=== PATIENT | female | born 1965 | race Caucasian/White ===

== ENCOUNTER → 2023-07-12 | Outpatient (CLI) | payer OTHER ==
--- NOTE | 2023-07-12 14:03 | P.SLEEP ---
History of Present Illness DATE: 07/12/2023 CONSULTATION/NEW PATIENT EVALUATION HISTORY OF PRESENT ILLNESS/SLEEP-WAKE EVALUATION: 57-year-old lady had been ev aluated in the sleep center for possible obstructive sleep apnea hypopnea syndrome. SLEEP SCHEDULE: Usually sleep schedule from 10 PM to 6 AM on weekdays and from 10 PM to 8 AM on weekend. FALLING ASLEEP: Sometimes patient may have difficulties with falling asleep, has TV set and bedroom. DURING SLEEP: Patient usually sleeps on the side position of the loud snoring and witnessed episodes of stop breathing during the sleep by her son. Patient wakes up from sleep up to 3 times with nocturia. No history of hypnogogical hallucinations, sleep paralysis, or cataplexy. DURING THE DAY/WAKE STATE: In the morning patient wake up tired, has episodes of depression and sleepiness. [place] sleepiness scale is increased to 13. Usually patient although doesn't take naps. PAST MEDICAL HISTORY: Hypertension, Pre Diabetes, arthritis of the hands. PAST SURGICAL HISTORY: Tubal ligation, ankle surgery, lipoma removed from left wrist. MEDICATIONS: Losartan once a day. SOCIAL HISTORY: Positive history of smoking for 20 pack years quit 19 years ago, alcohol consumption occasional. FAMILY HISTORY: Hypertension, heart problems, cancer, mental illness. REVIEW OF SYSTEMS: Snoring, multiple awakenings from sleep, sleepiness during the day. No fevers. No double vision. No recent chest pain. No shortness of breath. No abdominal pain. No bleeding episodes. No blood in urine. No seizure episodes. PHYSICAL EXAMINATION: GENERAL: A pleasant patient without any distress. VITAL SIGNS: BP 153/86, HR 88, RR 16, weight 254.0 pounds, height 5 foot 1.5 inches, body mass index 52.6. HEENT: PERRIAN, EOMI. Evaluation of oropharynx showed tongue protrudes midline, low position of soft palate Mallampati 4. NECK: Supple. No JVD. Thyroid is not palpable. 19-1/8 inches in circumference. LUNGS: Clear to percussion and to auscultation. Good air exchange. No wheezing or rhonchi. HEART: S1, S2 regular. No murmurs, gallops or rubs. ABDOMEN: Soft and nontender. Bowel sounds are present. No organomegaly appreciated. EXTREMITIES: No clubbing or cyanosis. MIG WELDER: Awake, alert, and oriented x3. Cranial nerves 2 to 7 intact. There is no fasciculation or atrophy noted. No focal deficits observed. ASSESSMENT: 1. Loud snoring, witnessed episodes of stop breathing during the sleep, extremely low position of soft palate Mallampati 4, retrognathia 3 mm, wide neck, sleepiness. Obstructive sleep apnea hypopnea syndrome. 2. Obesity BMI 52.6. 3. Hypertension. 4. History of hands arthritis. 5 history of prediabetes. PLAN: 1. Polysomnography for evaluation of patient's breathing during sleep. 2. CPAP/BiPAP titration if sleep study confirms obstructive sleep apnea- hypopnea syndrome. 3. Preferable position during sleep on the side. 4. No driving if patient feels any sleepiness. Patient is aware of civil and criminal liability for unsafe driving. 5. Sleep hygiene with regular sleep time for at least 7.5-8 hours. 6. Watching and losing weight. Thank you very much for referring this patient for consultation. Sincerely, Ty Ernst MD, PhD, FAASM. Diplomat of [employer], Sleep Medicine Board by [employer] [employer] Associate of [facility] [place] Sleep Note - Sleep Note Sleep Note: Temperature: Pulse Rate: Respiratory Rate: Blood Pressure: SpO2: Height: Weight: BMI: Neck Circumference:
== END ==
LOC: 3 N SLEEP 13:25
PROVIDERS: ATTEND Internal Medicine
DX: G47.33 Obstructive sleep apnea (adult) (pediatric) (principal); E66.9 Obesity, unspecified; R73.03 Prediabetes; I10 Essential (primary) hypertension; M19.041 Primary osteoarthritis, right hand; M26.19 Other specified anomalies of jaw-cranial base relationship; M19.042 Primary osteoarthritis, left hand; Z68.43 Body mass index [BMI] 50.0-59.9, adult
CPT/HCPCS: 99202